=== PATIENT | female | born 1980 | race Caucasian/White ===

== ENCOUNTER 2017-09-02 22:25 | Emergency (ER) | payer MEDICARE, OTHER ==
[~2017-09-02] VITALS: Ht 147.3 cm; Wt 92.1 kg
[2017-09-02 22:36] VITALS: BP 144/89
--- NOTE | 2017-09-02 22:39 | NUR ---
TO LOBBY A/W BED, AMBULATORY VSS, PACO NOTED
--- NOTE | 2017-09-02 22:51 | NUR ---
PT TAKEN TO BED 12
--- NOTE | 2017-09-02 23:10 | NUR ---
PT BIB SELF FOR PALPITATION X1 WEEK. PT STATES SHE WAS AT REST WHEN PALPITATION STARTED. PT STATES THEY HAVE BEEN INTERMITTENT BUT "TODAY IT HASNT STOPPED". RR EVEN AND UNLABORED, BL BS CLEAR THROUGH OUT. PT IS LAYING IN BED IN NO APPARENT DISTRESS. NO PMH, NKDA
[2017-09-03] LABS: BASOPHILS # (AUTO) 0.1 K/uL (0.00-0.22); BASOPHILS % (AUTO) 0.7 % (0.0-2.0); EOSINOPHILS # (AUTO) 0.1 K/uL (0-0.4); EOSINOPHILS % (AUTO) 1.8 % (0.0-4.0); HEMATOCRIT 38.5 % (36-48); HEMOGLOBIN 12.9 g/dL (12.0-16.0); LYMPHOCYTES # (AUTO) 1.9 K/uL (2.5-16.5); LYMPHOCYTES % (AUTO) 26.4 % (20.5-51.1); MEAN CORPUSCULAR HEMOGLOBIN 30 pg (27-31); MEAN CORPUSCULAR HGB CONC 34 g/dL (33-37); MEAN CORPUSCULAR VOLUME 90.2 fL (80-94); MONOCYTES # (AUTO) 0.7 K/uL (0.8-1.0); MONOCYTES % (AUTO) 9.2 % (1.7-9.3); NEUTROPHILS # (AUTO) 4.4 K/uL (1.8-7.7); NEUTROPHILS % (AUTO) 61.9 % (42.2-75.2); PLATELET COUNT (AUTO) 215 K/uL (140-450); RED BLOOD CELL COUNT(AUTO) 4.27 MIL/uL (4.20-5.40); RED CELL DISTRIBUTION WIDTH 13.3 % (11.6-13.7); WHITE BLOOD COUNT (AUTO) 7.2 K/uL (4.8-10.8)
[2017-09-03 00:18] LABS: ANION GAP 11.6 (8-16); CARBON DIOXIDE 25.5 mmol/L (21-32); CREATININE 0.8 mg/dL (0.6-1.3); POTASSIUM 4.1 mmol/L (3.5-5.1)
[2017-09-03 00:27] LABS: CREATINE KINASE MB 0.5 ng/mL (0-3.6)
[2017-09-03 00:33] LABS: ALBUMIN 3.6 g/dL (3.4-5.0); FREE T4 (FREE THYROXINE) 0.84 ng/dL (0.76-1.46); THYROID STIMULATING HORMONE 2.67 uIU/mL (0.34-3.74); TOTAL BILIRUBIN 0.2 mg/dL (0.0-1.0)
[2017-09-03 00:54] VITALS: BP 130/88
--- NOTE | 2017-09-03 00:54 | NUR ---
Patient discharged with v/s stable. Written and verbal after care instructions given and explained. Patient alert, oriented and verbalized understanding of instructions. Ambulatory with steady gait. All questions addressed prior to discharge. ID band removed. Patient advised to follow up with PMD. Opportunity to ask questions provided and answered.
== END 2017-09-03 00:54 | disposition home or self-care (01) ==
LOC: MED 22:25
DX: R00.2 Palpitations (principal)
CPT/HCPCS: 36415; 71045; 80053; 81025; 82550; 82553; 84439; 84443; 84484; 85025; 93005; 99285